=== PATIENT | male | born 1955 | race Caucasian/White ===

== ENCOUNTER 2017-05-06 08:34 | Day surgery (SDC) | payer BC ==
[2017-05-06] MEDS ORDERED: DULO60CA45 PO (09:33)
[2017-05-06] MEDS ORDERED: METF500T4 PO (09:33)
[2017-05-06] MEDS ORDERED: LISI30TA4 PO (09:35)
[2017-05-06] MEDS ORDERED: LIDOcaine 2% 5ml jelly ONE ×2 (09:44→09:46)
== END 2017-05-06 10:25 | disposition home or self-care (01) ==
LOC: WOUND CARE 08:34
PROVIDERS: ATTEND Surgery
DX: E11.621 Type 2 diabetes mellitus with foot ulcer (principal); L97.511 Non-pressure chronic ulcer of other part of right foot limited to breakdown of skin; I10 Essential (primary) hypertension; F32.9 Major depressive disorder, single episode, unspecified; Z87.891 Personal history of nicotine dependence; Z72.89 Other problems related to lifestyle
CPT/HCPCS: 11042; 36416; 82948; A6021; A6222; L3260

== ENCOUNTER 2017-05-13 08:36 | Day surgery (SDC) | payer OTHER ==
[~2017-05-13 08:36] MED LIST: DULO60CA45 PO; LISI30TA4 PO; METF500T4 PO
[2017-05-13] MEDS ORDERED: LIDOcaine 2% 5ml jelly ONE (10:01)
== END 2017-05-13 10:40 | disposition home or self-care (01) ==
LOC: WOUND CARE 08:36
PROVIDERS: ATTEND Surgery
DX: E11.621 Type 2 diabetes mellitus with foot ulcer (principal); I10 Essential (primary) hypertension; F32.9 Major depressive disorder, single episode, unspecified; Z72.89 Other problems related to lifestyle; Z87.891 Personal history of nicotine dependence
CPT/HCPCS: 11042; 36416; 82948; A6021; A6209; A6222

== ENCOUNTER 2017-05-20 08:30 | Day surgery (SDC) | payer OTHER, BC ==
[2017-05-20] MEDS ORDERED: LIDOcaine 2% 5ml jelly ONE (09:30)
== END 2017-05-20 10:20 | disposition home or self-care (01) ==
LOC: WOUND CARE 08:30
PROVIDERS: ATTEND Surgery
DX: E11.621 Type 2 diabetes mellitus with foot ulcer (principal); L97.511 Non-pressure chronic ulcer of other part of right foot limited to breakdown of skin; I10 Essential (primary) hypertension; F32.9 Major depressive disorder, single episode, unspecified; F10.10 Alcohol abuse, uncomplicated; Z72.89 Other problems related to lifestyle; Z87.891 Personal history of nicotine dependence
CPT/HCPCS: 11042; 36416; 82948; A6021; A6212; A6222

== ENCOUNTER 2017-05-24 09:21 | Day surgery (SDC) | payer OTHER, BC ==
[2017-05-24] MEDS ORDERED: LIDOcaine 2% 5ml jelly ONE (10:07)
[2017-05-24] MEDS ORDERED: LIDOcaine 1%/PF (10mg/ml) 5ml vial ONE (10:30)
[2017-05-24] MEDS ORDERED: CLIN300C53 PO (14:11)
== END 2017-05-24 11:42 | disposition home or self-care (01) ==
LOC: WOUND CARE 09:21
PROVIDERS: ATTEND Surgery
DX: E11.621 Type 2 diabetes mellitus with foot ulcer (principal); L97.511 Non-pressure chronic ulcer of other part of right foot limited to breakdown of skin; I10 Essential (primary) hypertension; F32.9 Major depressive disorder, single episode, unspecified; F10.10 Alcohol abuse, uncomplicated; Z72.89 Other problems related to lifestyle; Z87.891 Personal history of nicotine dependence
CPT/HCPCS: 10061; 36416; 82948; 87070; 87075; 87077; 87102; 87186; A6021; A6222; J2001

== ENCOUNTER 2017-05-27 08:30 | Day surgery (SDC) | payer OTHER, BC ==
[~2017-05-27 08:30] MED LIST changes: +CLIN300C53 PO
[2017-05-27] MEDS ORDERED: LIDOcaine 2% 5ml jelly ONE (09:50)
== END 2017-05-27 10:29 | disposition home or self-care (01) ==
LOC: WOUND CARE 08:30
PROVIDERS: ATTEND Surgery
DX: E11.621 Type 2 diabetes mellitus with foot ulcer (principal); L97.511 Non-pressure chronic ulcer of other part of right foot limited to breakdown of skin; I10 Essential (primary) hypertension; F32.9 Major depressive disorder, single episode, unspecified; F10.10 Alcohol abuse, uncomplicated; Z72.89 Other problems related to lifestyle; Z87.891 Personal history of nicotine dependence
CPT/HCPCS: 11042; 36416; 73630; 82948; A6021; A6206; A6209

== ENCOUNTER 2017-05-31 08:27 | Day surgery (SDC) | payer OTHER, BC ==
[2017-05-31] MEDS ORDERED: LIDOcaine 2% 5ml jelly ONE (09:46)
== END 2017-05-31 10:26 | disposition home or self-care (01) ==
LOC: WOUND CARE 08:27
PROVIDERS: ATTEND Surgery
DX: E11.621 Type 2 diabetes mellitus with foot ulcer (principal); L97.511 Non-pressure chronic ulcer of other part of right foot limited to breakdown of skin; I10 Essential (primary) hypertension; F10.10 Alcohol abuse, uncomplicated; F32.9 Major depressive disorder, single episode, unspecified
CPT/HCPCS: 11042; 36416; 82948; A6021; A6206

== ENCOUNTER 2017-06-07 08:30 | Day surgery (SDC) | payer OTHER, BC ==
[2017-06-07] MEDS ORDERED: LIDOcaine 2% 5ml jelly ONE (09:33)
== END 2017-06-07 10:31 | disposition home or self-care (01) ==
LOC: WOUND CARE 08:30
PROVIDERS: ATTEND Surgery
DX: E11.621 Type 2 diabetes mellitus with foot ulcer (principal); L97.511 Non-pressure chronic ulcer of other part of right foot limited to breakdown of skin; I10 Essential (primary) hypertension; F10.10 Alcohol abuse, uncomplicated; F32.9 Major depressive disorder, single episode, unspecified
CPT/HCPCS: 11042; 36416; 82948; A6021; A6206; A6212

== ENCOUNTER 2017-06-14 08:15 | Day surgery (SDC) | payer OTHER, BC ==
[2017-06-14] MEDS ORDERED: LIDOcaine 2% 5ml jelly ONE (09:37)
== END 2017-06-14 10:25 | disposition home or self-care (01) ==
LOC: WOUND CARE 08:15
PROVIDERS: ATTEND Surgery
DX: E11.621 Type 2 diabetes mellitus with foot ulcer (principal); L97.511 Non-pressure chronic ulcer of other part of right foot limited to breakdown of skin; I10 Essential (primary) hypertension; F10.10 Alcohol abuse, uncomplicated; F32.9 Major depressive disorder, single episode, unspecified; Z72.89 Other problems related to lifestyle; Z87.891 Personal history of nicotine dependence
CPT/HCPCS: 11042; 36416; 82948; A6021; A6206; A6212

== ENCOUNTER 2017-06-21 08:15 | Day surgery (SDC) | payer BC, OTHER ==
[2017-06-21] MEDS ORDERED: LIDOcaine 2% 5ml jelly ONE (09:47)
== END 2017-06-21 10:30 | disposition home or self-care (01) ==
LOC: WOUND CARE 08:15
PROVIDERS: ATTEND Surgery
DX: E11.621 Type 2 diabetes mellitus with foot ulcer (principal); L97.511 Non-pressure chronic ulcer of other part of right foot limited to breakdown of skin; I10 Essential (primary) hypertension; F10.10 Alcohol abuse, uncomplicated; F32.9 Major depressive disorder, single episode, unspecified; Z72.89 Other problems related to lifestyle; Z87.891 Personal history of nicotine dependence
CPT/HCPCS: 11043; 36416; 82948; A6206; A6212

== ENCOUNTER 2017-06-25 08:27 | Outpatient (CLI) | payer OTHER | END 2017-06-25 23:59 | disposition home or self-care (01) | LOC: RAD 08:27 | PROVIDERS: ATTEND Surgery | DX: M86.9 Osteomyelitis, unspecified (principal); M20.11 Hallux valgus (acquired), right foot | CPT/HCPCS: 73718 ==

== ENCOUNTER 2017-06-28 08:15 | Day surgery (SDC) | payer OTHER ==
[2017-06-28] MEDS ORDERED: LIDOcaine 2% 5ml jelly ONE (09:45)
[2017-06-28] MEDS ORDERED: gentamicin 0.1% topical ointment 15gm TP ONE (12:25)
== END 2017-06-28 10:14 | disposition home or self-care (01) ==
LOC: WOUND CARE 08:15
PROVIDERS: ATTEND Surgery
DX: E11.621 Type 2 diabetes mellitus with foot ulcer (principal); L97.511 Non-pressure chronic ulcer of other part of right foot limited to breakdown of skin; I10 Essential (primary) hypertension; F10.10 Alcohol abuse, uncomplicated; F32.9 Major depressive disorder, single episode, unspecified; Z72.89 Other problems related to lifestyle; Z87.891 Personal history of nicotine dependence
CPT/HCPCS: 36416; 82948

== ENCOUNTER 2017-07-05 08:15 | Day surgery (SDC) | payer OTHER ==
[2017-07-05] MEDS ORDERED: LIDOcaine 2% 5ml jelly ONE (09:49)
== END 2017-07-05 11:02 | disposition home or self-care (01) ==
LOC: WOUND CARE 08:15
PROVIDERS: ATTEND Surgery
DX: E11.621 Type 2 diabetes mellitus with foot ulcer (principal); L97.511 Non-pressure chronic ulcer of other part of right foot limited to breakdown of skin; I10 Essential (primary) hypertension; F10.10 Alcohol abuse, uncomplicated; F32.9 Major depressive disorder, single episode, unspecified; Z72.89 Other problems related to lifestyle; Z87.891 Personal history of nicotine dependence
CPT/HCPCS: 15275; 36416; 82948; A6209; Q4106; A6250

== ENCOUNTER 2017-07-12 08:20 | Outpatient (CLI) | payer OTHER | END 2017-07-12 09:18 | disposition home or self-care (01) | LOC: WOUND CARE 08:20 → EDSTATUS 08:30 → WOUND CARE 09:18 | PROVIDERS: ATTEND Surgery | DX: E11.621 Type 2 diabetes mellitus with foot ulcer (principal); L97.511 Non-pressure chronic ulcer of other part of right foot limited to breakdown of skin; I10 Essential (primary) hypertension; F10.10 Alcohol abuse, uncomplicated; F32.9 Major depressive disorder, single episode, unspecified; Z87.891 Personal history of nicotine dependence | CPT/HCPCS: 36416; 82948; 99211; A6209 ==

== ENCOUNTER 2017-07-19 08:20 | Day surgery (SDC) | payer OTHER ==
[~2017-07-19 08:20] MED LIST changes: -CLIN300C53 PO
[2017-07-19] MEDS ORDERED: LIDOcaine 2% 5ml jelly ONE (09:50)
== END 2017-07-19 11:11 | disposition home or self-care (01) ==
LOC: WOUND CARE 08:20
PROVIDERS: ATTEND Surgery
DX: E11.621 Type 2 diabetes mellitus with foot ulcer (principal); L97.511 Non-pressure chronic ulcer of other part of right foot limited to breakdown of skin; I10 Essential (primary) hypertension; E11.69 Type 2 diabetes mellitus with other specified complication; M86.9 Osteomyelitis, unspecified; F10.10 Alcohol abuse, uncomplicated; F32.9 Major depressive disorder, single episode, unspecified; Z87.891 Personal history of nicotine dependence
CPT/HCPCS: 15275; 36416; 82948; A6209; A6222; A6446; Q4106; A6250

== ENCOUNTER 2017-07-26 08:15 | Outpatient (CLI) | payer OTHER ==
[2017-07-26] MEDS ORDERED: LIDOcaine 2% 5ml jelly ONE (09:44)
== END 2017-07-26 10:08 | disposition home or self-care (01) ==
LOC: WOUND CARE 08:15 → EDSTATUS 08:30 → WOUND CARE 10:08
PROVIDERS: ATTEND Surgery
DX: E11.621 Type 2 diabetes mellitus with foot ulcer (principal); L97.511 Non-pressure chronic ulcer of other part of right foot limited to breakdown of skin; I10 Essential (primary) hypertension; E11.69 Type 2 diabetes mellitus with other specified complication; M86.9 Osteomyelitis, unspecified; F10.10 Alcohol abuse, uncomplicated; F32.9 Major depressive disorder, single episode, unspecified; Z87.891 Personal history of nicotine dependence
CPT/HCPCS: 36416; 82948; 99215

== ENCOUNTER 2017-08-02 08:30 | Outpatient (CLI) | payer OTHER | END 2017-08-02 09:50 | disposition home or self-care (01) | LOC: WOUND CARE 08:30 → EDSTATUS 08:30 → WOUND CARE 09:50 | PROVIDERS: ATTEND Surgery | DX: E11.621 Type 2 diabetes mellitus with foot ulcer (principal); L97.511 Non-pressure chronic ulcer of other part of right foot limited to breakdown of skin; I10 Essential (primary) hypertension; E11.69 Type 2 diabetes mellitus with other specified complication; M86.9 Osteomyelitis, unspecified; F10.10 Alcohol abuse, uncomplicated; F32.9 Major depressive disorder, single episode, unspecified; Z87.891 Personal history of nicotine dependence | CPT/HCPCS: 36416; 82948; 99211; 99215 ==

== ENCOUNTER 2017-08-09 08:22 | Outpatient (CLI) | payer BC, OTHER ==
[2017-08-09] MEDS ORDERED: LIDOcaine 2% 5ml jelly ONE (09:38)
[2017-08-09] MEDS ORDERED: mupirocin 2% ointment 22GM ONE (09:55)
== END 2017-08-09 10:01 | disposition home or self-care (01) ==
LOC: WOUND CARE 08:22 → EDSTATUS 08:30 → WOUND CARE 10:01
PROVIDERS: ATTEND Surgery
DX: E11.621 Type 2 diabetes mellitus with foot ulcer (principal); L97.511 Non-pressure chronic ulcer of other part of right foot limited to breakdown of skin; I10 Essential (primary) hypertension; E11.69 Type 2 diabetes mellitus with other specified complication; M86.9 Osteomyelitis, unspecified; F10.10 Alcohol abuse, uncomplicated; F32.9 Major depressive disorder, single episode, unspecified; Z87.891 Personal history of nicotine dependence
CPT/HCPCS: 36416; 82948; 99215